=== PATIENT | male | born 1975 | race Two or more races ===

== ENCOUNTER 2020-12-22 11:25 | Emergency (ER) | payer SELFPAY ==
[2020-12-22 11:39] VITALS: BP 141/79; PULSE 74; TEMP 97.5; BMI 25.2
[2020-12-22] MEDS ORDERED: KETOROLAC TROMETHAMINE 60 MG/2 ML VIAL IM ONE (11:49)
[2020-12-22] MEDS ORDERED: KETOROLAC TROMETHAMINE 60 MG/2 ML VIAL ONE (12:04)
== END 2020-12-22 12:56 | disposition home or self-care (01) ==
LOC: JERFT 11:25
PROC: 3E0233Z Introduction of Anti-inflammatory into Muscle, Percutaneous Approach (ICD-10-PCS; principal; 2020-12-22)
DX: S39.92XA Unspecified injury of lower back, initial encounter (principal)
CPT/HCPCS: 99284-25